=== PATIENT | female | born 1955 | race Caucasian/White ===

== ENCOUNTER 2021-03-21 17:04 | Emergency (ER) | payer OTHER ==
[~2021-03-21] VITALS: Ht 157.5 cm; Wt 126.6 kg
[~2021-03-21 17:04] MED LIST: ACET-8386 PO; ASPI81CT33 PO; GABA600T1 PO; ISOS5TAB7 PO; LORA-476 PO; MECL-56 PO; METF500T PO; METO25TA14 PO; OMEP40EC24 PO; SIMV20TA1 PO
--- NOTE | 2021-03-21 17:20 | NUR ---
PT TO [facility] VIA W/C
[2021-03-21 17:22] VITALS: BP 146/77
--- NOTE | 2021-03-21 18:08 | NUR ---
PT W/C ASSISTED TO BED 12
--- NOTE | 2021-03-21 18:10 | NUR ---
66 y/o female BIBA for c/o [facility]. AOX4, able to make needs known. BLL noted with edema +3. Left lemus noted with wound closed with scab. No s.sx of active bleeding at this time. Abd is soft/ rounded and non-tender. Weak pedal pulses noted bilat. Resp even and unlabored. Clear lung sounds noted bilat. Trachea midline. Pmhx: DM, GERD, HTN Allergies: Denies Home meds: "Something for B/P and DM"
[2021-03-21 18:42] LABS: BASOPHILS # (AUTO) 0.1 K/uL (0.00-0.22); BASOPHILS % (AUTO) 0.4 % (0.0-2.0); EOSINOPHILS # (AUTO) 0.2 K/uL (0-0.4); EOSINOPHILS % (AUTO) 1.4 % (0.0-4.0); HEMOGLOBIN 11.5 g/dL (12.0-16.0); MEAN CORPUSCULAR HEMOGLOBIN 25 pg (27-31); MEAN CORPUSCULAR HGB CONC 32 g/dL (33-37); MEAN CORPUSCULAR VOLUME 79.6 fL (80-94); MONOCYTES # (AUTO) 0.9 K/uL (0.8-1.0); MONOCYTES % (AUTO) 6.7 % (1.7-9.3); NEUTROPHILS % (AUTO) 76.5 % (42.2-75.2); PLATELET COUNT (AUTO) 375 K/uL (140-450); RED BLOOD CELL COUNT(AUTO) 4.52 MIL/uL (4.20-5.40); RED CELL DISTRIBUTION WIDTH 16.1 % (11.6-13.7); WHITE BLOOD COUNT (AUTO) 13.1 K/uL (4.8-10.8)
[2021-03-21 18:52] LABS: ALBUMIN 3.1 g/dL (3.4-5.0); CARBON DIOXIDE 29.5 mmol/L (21-32); CREATININE 1.3 mg/dL (0.6-1.3); POTASSIUM 4.5 mmol/L (3.5-5.1); TOTAL BILIRUBIN 0.4 mg/dL (0.0-1.0)
--- NOTE | 2021-03-21 19:05 | NUR ---
Note jhon in EDM - 03/21/21 at 1910 by [facility] Patient discharged with v/s stable. Written and verbal after care instructions given and explained with teachback. Patient verbalized understanding. Ambulatory with steady gait. All questions addressed prior to discharge. Advised to follow up with PMD.
--- NOTE | 2021-03-21 19:19 | NUR ---
Pt report given to SANDIE VIDES. Transfer of care at this time.
--- NOTE | 2021-03-21 20:11 | NUR ---
Dr. Anglin examining patient.
--- NOTE | 2021-03-21 20:55 | NUR ---
SPOKE WITH PTS FAMILY. UPDATE GIVEN. SON : MANISH [phone]
[2021-03-21] MEDS ORDERED: CEPH-588 PO (22:37)
--- NOTE | 2021-03-21 22:58 | NUR ---
call to family re discharge. they will be here to machine pecan picker pt
[2021-03-21 23:15] VITALS: BP 146/77
--- NOTE | 2021-03-21 23:15 | NUR ---
Patient discharged with v/s stable. Written and verbal after care instructions given and explained. Patient alert, oriented and verbalized understanding of instructions. Wheel Chair Assisted with to car. All questions addressed prior to discharge. ID band removed. Patient advised to follow up with PMD. Rx of KEFLEX given. Patient educated on indication of medication including possible reaction and side effects. Opportunity to ask questions provided and answered.
[2021-03-21] MEDS ORDERED: IBUPROFEN 800 MG TAB ONE (23:16)
[2021-03-21] MEDS ORDERED: IBUPROFEN 800 MG TAB PO ONE (23:20)
== END 2021-03-21 23:15 | disposition home or self-care (01) ==
LOC: MED 17:04
DX: L03.116 Cellulitis of left lower limb (principal); I10 Essential (primary) hypertension; E11.9 Type 2 diabetes mellitus without complications; K21.9 Gastro-esophageal reflux disease without esophagitis; E78.5 Hyperlipidemia, unspecified; Z79.2 Long term (current) use of antibiotics; Z79.891 Long term (current) use of opiate analgesic; Z79.899 Other long term (current) drug therapy; Z79.82 Long term (current) use of aspirin
CPT/HCPCS: 36415; 72170; 73560; 73590; 80053; 85025; 93971; 99285; Q0092

== ENCOUNTER 2021-03-27 22:39 | Inpatient (IN) | payer OTHER, SELFPAY ==
[~2021-03-27] VITALS: Ht 165.1 cm; Wt 98.4 kg
[~2021-03-27 22:39] MED LIST changes: +CEPH-588 PO
--- NOTE | 2021-03-27 22:44 | NUR ---
MOVED INTO ED BED 6 AT THIS TIME BY EMS
[2021-03-27 22:46] VITALS: BP 128/65
--- NOTE | 2021-03-28 00:12 | NUR ---
er md at bedside for assessment, performed hemoccult test
[2021-03-28] MEDS: SIMVASTATIN 20 MG TAB PO SCH (00:43)
[2021-03-28 01:15] LABS: BASOPHILS # (AUTO) 0.1 K/uL (0.00-0.22); BASOPHILS % (AUTO) 0.8 % (0.0-2.0); EOSINOPHILS # (AUTO) 0.2 K/uL (0-0.4); EOSINOPHILS % (AUTO) 2.1 % (0.0-4.0); HEMATOCRIT 30.6 % (36-48); HEMOGLOBIN 9.8 g/dL (12.0-16.0); LYMPHOCYTES # (AUTO) 2.2 K/uL (2.5-16.5); LYMPHOCYTES % (AUTO) 18.1 % (20.5-51.1); MEAN CORPUSCULAR HEMOGLOBIN 25 pg (27-31); MEAN CORPUSCULAR HGB CONC 32 g/dL (33-37); MONOCYTES # (AUTO) 1.1 K/uL (0.8-1.0); MONOCYTES % (AUTO) 9.5 % (1.7-9.3); NEUTROPHILS # (AUTO) 8.3 K/uL (1.8-7.7); NEUTROPHILS % (AUTO) 69.5 % (42.2-75.2); PLATELET COUNT (AUTO) 348 K/uL (140-450); RED BLOOD CELL COUNT(AUTO) 3.87 MIL/uL (4.20-5.40); RED CELL DISTRIBUTION WIDTH 16.2 % (11.6-13.7)
[2021-03-28] MEDS ORDERED: ACETAMINOPHEN EXTRA STRENGTH 500 MG TAB PO ONE (01:15)
[2021-03-28 01:39] LABS: ALBUMIN 2.5 g/dL (3.4-5.0); ANION GAP 10.2 (8-16); CARBON DIOXIDE 29.4 mmol/L (21-32); CREATININE 1.6 mg/dL (0.6-1.3); POTASSIUM 3.6 mmol/L (3.5-5.1); TOTAL BILIRUBIN 0.5 mg/dL (0.0-1.0)
[2021-03-28] MEDS ORDERED: DEXTROSE 50% 50 ML SYR IVP ONE ×2 (01:50)
[2021-03-28 01:57] LABS: BILIRUBIN,URINE 1+ (NEGATIVE); BLOOD, URINE 3+ (NEGATIVE); COLOR,URINE YELLOW (YELLOW); LEUKOCYTE ESTERASE ,URINE 2+ (NEGATIVE); NITRITE, URINE POSITIVE (NEGATIVE); UGLUCOSE NEGATIVE (NEGATIVE)
[2021-03-28 02:03] LABS: APPEARANCE,URINE SLIGHTLY CLOUDY (CLEAR)
[2021-03-28 02:04] LABS: RBC,URINE 0-5 /HPF (0-5); WBC,URINE TOO MANY TO COUNT /HPF (0-5)
--- NOTE | 2021-03-28 02:18 | NUR ---
ADMIT CALLED TO CONFIRM ADMISSION INSURANCE AND WAS TOLD IT WAS A CALL OUT
--- NOTE | 2021-03-28 02:39 | NUR ---
ER MD ADVISED OF PATIENT COMPLAINTS OF PAIN
[2021-03-28] MEDS ORDERED: MORPHINE SULFATE 2 MG/ML SYR IVP ONE (02:40)
[2021-03-28] MEDS ORDERED: cefTRIAXone 1,000 MG VIAL ONE (02:51)
[2021-03-28] MEDS: DEXTROSE 10% 1,000 ML IV SCH (03:30)
[2021-03-28] MEDS: BLOOD GLUCOSE MONITORING 1 DEV DEV FS SCH ×6 (05:51→21:21)
--- NOTE | 2021-03-28 06:58 | NUR ---
PATIENT HAS BEEN SCREENED AND CATEGORIZED LOW NUTRITION RISK. PATIENT WILL BE SEEN WITHIN 7 DAYS OF ADMISSION. 04/05/21 MARY BARBOUR MS, RDN Addendum: 03/28/21 at [address] Correct date to be seen: 04/04/21 Mary Barbour MS, RDN
--- NOTE | 2021-03-28 07:26 | NUR ---
RECEIVED REPORT FROM MAHOGANY MINA. ASSUMED CARE AT THIS TIME.
[2021-03-28] MEDS ORDERED: ZOLPIDEM 5 MG TAB PO PRN (07:35)
[2021-03-28] MEDS ORDERED: ONDANSETRON 4 MG/2 ML VIAL IVP PRN (07:35)
[2021-03-28] MEDS ORDERED: ACETAMINOPHEN 325 MG TAB PO PRN (07:35)
[2021-03-28 08:19] LABS: FREE T4 (FREE THYROXINE) 1.42 ng/dL (0.76-1.46); MAGNESIUM 2.1 mg/dL (1.8-2.4); PHOSPHORUS 4.9 mg/dL (2.5-4.9); THYROID STIMULATING HORMONE 1.35 uIU/mL (0.34-3.74)
--- NOTE | 2021-03-28 08:24 | NUR ---
S/W PATIENTS STEP DAUGHTER MANDA WITH PATIENT UPDATE.
--- NOTE | 2021-03-28 08:43 | NUR ---
PATIENT PROVIDED WITH BREAKFAST TRAY, ASSISTED UP IN BED. PATIENT EATING, ALL NEEDS MET AT THIS TIME.
[2021-03-28] MEDS ORDERED: HYDROcodone/APAP 5/325 MG 1 TAB TAB PO PRN (11:15)
--- NOTE | 2021-03-28 11:55 | NUR ---
PATIENT C/O 9/10 PAIN, MEDICATED WITH PRN MORPHINE ORDERED.
[2021-03-28] MEDS: MORPHINE SULFATE 2 MG/ML SYR IVP PRN ×2 (12:03→16:47)
--- NOTE | 2021-03-28 12:04 | NUR ---
PATIENT ASSISTED TO USE BED LAWS. PROVIDED WITH NEW SHEETS, DIAPER AND UNDERPADS, GIVEN CLEAN BLANKETS, ALL NEEDS MET AT THIS TIME.
[2021-03-28] MEDS ORDERED: DEXTROSE 50% 50 ML SYR IVP PRN (13:10)
[2021-03-28] MEDS ORDERED: MECLIZINE 25 MG TAB PO PRN (13:10)
--- NOTE | 2021-03-28 14:00 | NUR ---
PATIENT PROVIDED WITH LUNCH TRAY, ASSISTED UP IN BED. PATIENT EATING, ALL NEEDS MET AT THIS TIME.
[2021-03-28] MEDS ORDERED: BLOOD GLUCOSE MONITORING 1 DEV DEV FS SCH (16:30)
--- NOTE | 2021-03-28 16:46 | NUR ---
PATIENT C/O 8/10 PAIN, MEDICATED WITH PRN MORPHINE ORDERED.
[2021-03-28] MEDS: GABAPENTIN 300 MG CAP PO SCH (17:12)
--- NOTE | 2021-03-28 17:45 | NUR ---
PATIENT APPEARS TO BE RESTING IN BED WITH EYES CLOSED. PATIENT ON BEDSIDE STRAND AND BINDER CONTROLLER, WILL CONTINUE TO MONITOR.
--- NOTE | 2021-03-28 19:14 | NUR ---
Pt report given to MAHOGANY OLIVEIRA. Transfer of care at this time.
--- NOTE | 2021-03-28 20:04 | NUR ---
Report given to JESSICA Morin and patient will transfer to room 120A.
[2021-03-28 20:45] VITALS: BP 101/59
--- NOTE | 2021-03-28 20:55 | NUR ---
RECEIVED PT FROM / TYSON AAOX4 , TRANSFER TO BED W/ ASSIST . IV SITE INTACT AND PATENT . NID - OP2 SAT WNL - W/ O2 AT 2LPM/NC , DENIES PAIN AT THIS TIME , W/ WOUNDS : L LEG , UNDER THE BREASTS , AND ABD. SKIN FOLDS . ADMISSION ASSESSMENT - DONE , PUT PT ON FALL RISK PROTOCOL - REMINDS PT DON'T STAND UP BY HERSELF , BUT USE CALL LIGHT NEEDED . ON TELE MONITOR - SR . WILL CONT. TO MONITOR .
[2021-03-28] MEDS: ISOSORBIDE DINITRATE 10 MG TAB PO SCH (21:00)
[2021-03-28] MEDS: METOPROLOL 25 MG TAB PO SCH (21:00)
[2021-03-28] MEDS: INSULIN LISPRO SLIDING SCALE 100 UNITS/ML VIAL SUBQ PRN (21:21)
[2021-03-29] VITALS: BP 123/80
--- NOTE | 2021-03-29 | NUR ---
ROUNDS , SLEEPING , AWAKEABLE . CALL LIGHT WITHIN REACH .
[2021-03-29] MEDS: SIMVASTATIN 20 MG TAB PO SCH ×2 (00:30→23:30)
--- NOTE | 2021-03-29 02:00 | NUR ---
C/O LEG PAIN - WILL MEDICATE - V/S WNL . WILL CONT. TO MONITOR .
[2021-03-29 04:00] VITALS: BP 125/81
--- NOTE | 2021-03-29 04:00 | NUR ---
ROUNDS , NID - O2 SAT WNL . WILL CONT. TO MONITOR - CALL LIGHT WITHIN REACH .
--- NOTE | 2021-03-29 06:00 | NUR ---
ENDORSED- PT - STABLE - FOR STOOL OCCULT .CALL LIGHT WITHIN REACH
[2021-03-29] MEDS: DEXTROSE 10% 1,000 ML IV SCH (06:19)
[2021-03-29] MEDS: BLOOD GLUCOSE MONITORING 1 DEV DEV FS SCH ×4 (06:22→21:03)
[2021-03-29 06:50] LABS: BASOPHILS # (AUTO) 0.1 K/uL (0.00-0.22); BASOPHILS % (AUTO) 0.5 % (0.0-2.0); EOSINOPHILS # (AUTO) 0.4 K/uL (0-0.4); EOSINOPHILS % (AUTO) 3.5 % (0.0-4.0); HEMATOCRIT 31.4 % (36-48); LYMPHOCYTES % (AUTO) 16.8 % (20.5-51.1); MEAN CORPUSCULAR HEMOGLOBIN 26 pg (27-31); MEAN CORPUSCULAR HGB CONC 32 g/dL (33-37); MEAN CORPUSCULAR VOLUME 80.5 fL (80-94); MONOCYTES % (AUTO) 8.3 % (1.7-9.3); NEUTROPHILS # (AUTO) 8.6 K/uL (1.8-7.7); NEUTROPHILS % (AUTO) 70.9 % (42.2-75.2); PLATELET COUNT (AUTO) 325 K/uL (140-450); RED CELL DISTRIBUTION WIDTH 16.5 % (11.6-13.7); WHITE BLOOD COUNT (AUTO) 12.2 K/uL (4.8-10.8)
[2021-03-29 07:27] LABS: ANION GAP 9.5 (8-16); CARBON DIOXIDE 28.6 mmol/L (21-32); CREATININE 1.4 mg/dL (0.6-1.3); POTASSIUM 4.1 mmol/L (3.5-5.1)
--- NOTE | 2021-03-29 07:30 | NUR ---
RECEIVED PT AAOX4. NO SOB NOTED. NO C/O PAIN AT THIS TIME. IV TO LEFT HAND PATENT AND INTACT. CHEST, DIMINISHED AIR ENTRY TO THE BASES. ABDOMEN SOFT, BOWEL SOUNDS PRESENT. BLE EDEMA, NO PITTING NOTED 2+, NOTED A CLOSED WOUND ON LEFT LOWER LEG. INSTRUCTED PT TO CALL FOR ASSISTANCE, CALL LIGHT WITHIN REACH, PT VERBALIZED UNDERSTANDING.
[2021-03-29 07:59] LABS: PHOSPHORUS 4.7 mg/dL (2.5-4.9)
[2021-03-29 08:00] VITALS: BP 128/69
[2021-03-29 08:07] LABS: T4 (THYROXINE) 7.2 ug/dL (4.5-12.0)
[2021-03-29] MEDS: ISOSORBIDE DINITRATE 10 MG TAB PO SCH ×2 (09:54→21:00)
[2021-03-29] MEDS: ASPIRIN 81 MG TAB.CHEW PO SCH (09:55)
[2021-03-29] MEDS: GABAPENTIN 300 MG CAP PO SCH ×3 (09:55→18:30)
[2021-03-29] MEDS: PANTOPRAZOLE 40 MG TABEC PO SCH (09:55)
[2021-03-29 12:00] VITALS: BP 138/66
--- NOTE | 2021-03-29 12:30 | NUR ---
APPLIED INTERDRY ON BILATERAL BREAST FOLDS AND ABDOMINAL FOLDS.
[2021-03-29 16:00] VITALS: BP 126/69
[2021-03-29] MEDS: INSULIN LISPRO SLIDING SCALE 100 UNITS/ML VIAL SUBQ PRN ×2 (18:30→22:46)
[2021-03-29] MEDS: FERROUS SULFATE 325 MG TABEC PO SCH (18:31)
--- NOTE | 2021-03-29 19:35 | NUR ---
PT RESTING. NO SOB NOTED. NO SIGNS OF PAIN ENDORSED TO NEXT SHIFT NURSE FOR CONTINUITY OF CARE.
[2021-03-29 20:00] VITALS: BP 111/59
[2021-03-29] MEDS: METOPROLOL 25 MG TAB PO SCH (21:00)
[2021-03-29] MEDS ORDERED: CRUSHER, PILL MC ONE (22:02)
--- NOTE | 2021-03-29 22:20 | NUR ---
PT HARDLY AWAKEABLE - O2 SAT 100 % , BP 127/56 , OH 79 AFEBRILE , RE CHECK BS 196 - APPLY STERNAL RUB .
[2021-03-30] VITALS: BP 105/60
--- NOTE | 2021-03-30 01:55 | NUR ---
FULLY AWAKE , EATING . O2 100 % . WILL CONT. TO MONITOR .
[2021-03-30 04:00] VITALS: BP 127/62
--- NOTE | 2021-03-30 04:00 | NUR ---
SLEEPING , AWAKEABLE , ON TELE MONITOR - SR , O2 SAT WNL.
--- NOTE | 2021-03-30 06:00 | NUR ---
AWAKE , NO C/O PAIN . O2 SAT 100 %
[2021-03-30 06:53] LABS: BASOPHILS % (AUTO) 0.4 % (0.0-2.0); EOSINOPHILS # (AUTO) 0.4 K/uL (0-0.4); EOSINOPHILS % (AUTO) 4.2 % (0.0-4.0); HEMATOCRIT 29.3 % (36-48); HEMOGLOBIN 9.6 g/dL (12.0-16.0); LYMPHOCYTES # (AUTO) 2.1 K/uL (2.5-16.5); LYMPHOCYTES % (AUTO) 19.9 % (20.5-51.1); MEAN CORPUSCULAR HEMOGLOBIN 26 pg (27-31); MEAN CORPUSCULAR HGB CONC 33 g/dL (33-37); MEAN CORPUSCULAR VOLUME 80.6 fL (80-94); MONOCYTES # (AUTO) 0.9 K/uL (0.8-1.0); MONOCYTES % (AUTO) 8.2 % (1.7-9.3); NEUTROPHILS # (AUTO) 7.2 K/uL (1.8-7.7); NEUTROPHILS % (AUTO) 67.3 % (42.2-75.2); PLATELET COUNT (AUTO) 349 K/uL (140-450); RED BLOOD CELL COUNT(AUTO) 3.63 MIL/uL (4.20-5.40); RED CELL DISTRIBUTION WIDTH 16.4 % (11.6-13.7); WHITE BLOOD COUNT (AUTO) 10.6 K/uL (4.8-10.8)
[2021-03-30] MEDS: INSULIN LISPRO SLIDING SCALE 100 UNITS/ML VIAL SUBQ PRN ×3 (06:56→16:54)
[2021-03-30] MEDS: BLOOD GLUCOSE MONITORING 1 DEV DEV FS SCH ×4 (06:56→20:00)
[2021-03-30 07:11] LABS: PHOSPHORUS 4.3 mg/dL (2.5-4.9)
--- NOTE | 2021-03-30 07:30 | NUR ---
ENDORSED- PT - STABLE .
[2021-03-30 07:43] LABS: ANION GAP 8.3 (8-16); CARBON DIOXIDE 30.1 mmol/L (21-32); CREATININE 1.5 mg/dL (0.6-1.3); POTASSIUM 4.4 mmol/L (3.5-5.1)
[2021-03-30 08:00] VITALS: BP 134/65
[2021-03-30] MEDS: GABAPENTIN 300 MG CAP PO SCH ×3 (08:31→16:43)
[2021-03-30] MEDS: FERROUS SULFATE 325 MG TABEC PO SCH ×2 (08:31→16:43)
[2021-03-30] MEDS: ISOSORBIDE DINITRATE 10 MG TAB PO SCH ×2 (08:31→21:49)
[2021-03-30] MEDS: ASPIRIN 81 MG TAB.CHEW PO SCH (08:31)
[2021-03-30] MEDS: PANTOPRAZOLE 40 MG TABEC PO SCH (08:32)
--- NOTE | 2021-03-30 09:35 | NUR ---
WOUND CARE EVALUATION NOTE: SKIN ASSESSMENT DONE WITH THIS 66 Y/O PT ADMITTED TO [facility] WITH INITIAL DX OF GENERALIZED WEAKNESS. PAST MEDICAL HX INCLUDES DIABETES TYPE 2, HYPERTENSION, HYPERLIPIDEMIA. ALL ABOVE INFORMATION OBTAINED FROM ADMISSION H&P. PT IS AWAKE. SKIN IS WARM AND DRY, BLE NO HAIR GROWTH, +1 EDEMA TO BILATERAL LOWER LEGS. BILATERAL DORSAL PEDAL PULSES PRESENT AND THICKEN FUNGAL NAILS OBSERVED. PT. INCONTINENT OF BLADDER AT TIME OF ASSESSMENT. PLAN OF CARE DISCUSSED WITH PRIMARY RN. INTEGUMENTARY: -INTERTRIGO BILATERAL BREAST FOLDS AND LOWER ABDOMINAL FOLDS, SKIN RED, MOIST INTACT. -MOISTURE ASSOCIATED DERMATITIS TO GROINS AND BILATERAL LOWER BUTTOCKS, LEFT BUTTOCKS WITH MULTIPLE EROSIONS SUPERFICIAL DEPTH. -LLE 3X3CM DRY BROWN SCAB, KIRBY-WOUND FLAKY SKIN RECOMMENDATIONS: -CLEANSE BILATERAL BREAST FOLDS AND LOWER ABDOMINAL FOLDS WITH MILD SOAP AND WATER, PAT DRY APPLY INTER DRY CLOTH QD AND CHANGE INTER DRY CLOTH WEEKLY AND PRN IF SOILING -APPLY CALMOSEPTINE CREAM TO GROINS AND BUTTOCKS BID AND PRN IF SOILING -PAINT LLE SCAB WITH BETADINE SWAP BID AND INTERNET ECOMMERCE SPECIALIST -TURN AND REPOSITION PATIENT Q 2H -INSPECT SKIN UNDER AND AROUND MEDICAL DEVICES. -ASSESS AND MONITOR SKIN CONDITION DURING POSITION CHANGE -OFFLOAD BILATERAL HEELS BY PLACING PILLOWS UNDER CALVES AT ALL TIMES, UNLESS OTHERWISE CONTRAINDICATED -APPLY HEEL PROTECTORS -PRESSURE REDISTRIBUTION SURFACE AND OFFLOADING SACRALCOCCYX -MANAGE FRICTION AND SHEAR BY USING LIFT SHEET TO REPOSITION PATIENT -HOB 30 DEGREE TOLERATE -PLEASE FOLLOW RD RECOMMENDATIONS PLEASE NOTIFIED WOUND CARE NURSE FOR ANY CHANGE OF SKIN CONDITION
--- NOTE | 2021-03-30 10:46 | NUR ---
PT STABLE. NO S/S OF DISTRESS. BREATHING SYMMETRICAL. CALL LIGHT IN REACH. ALL SAFETY MEASURES IN PLACE
[2021-03-30 12:12] VITALS: BP 129/65
--- NOTE | 2021-03-30 14:32 | NUR ---
DC PLANNIN YRS OLD FEMALE PATIENT WAS ADMITTED FROM HOME WITH A DX OF HYPOGLYCEMIA AND UTI. PATIENT HAS A HX OF DM HTN, HLD . CXR SHOWED LEFT BASILAR ATELECTASIS OR INFILTRATE RAPID COVID TEST NEGATIVE, HIP XRAY NO FRACTURE. STARTED IVF, IV ABX ROCEPHIN. CONSULTED WITH ID DR HENDRICKSON. ORDERED PT EVAL. DC PLAN SNF VS HOME HEALTH. CM TO FOLLOW Addendum: 04/01/21 at 1441 by Pat Macdonald RN DC PLANNING PATIENT HAS ESBL OF THE URINE NEEDS IV ABX AND PT RECOMMENDED SNF FOR REHAB. FAXED TO [facility] AND [facility]. CM TO FOLLOW Addendum: 04/01/21 at 1603 by Pat Macdonald RN DC PLANNING: RECEIVED A CALL FROM [facility] SPOKE WITH CINDY CHRISTOPHER THE [facility] IS DELEGATED FOR DC NEEDS CALLED [facility] [phone] SPOKE WITH THE COORDINATOR STATED HUMERA IS THE CM CALLED BENNYLUZ AT [phone] STATED AMADOU IS THE DC BETTING AGENCY MANAGER TO CALL [phone] AND TO FAX TO [phone]. SPOKE WITH AMADOU NOTIFIED HER THAT [facility] HAS NO ISO BED TODAY BUT WILL ACCEPT PATIENT TOMORROW. FAXED ALL THE REQUEST. CM TO FOLLOW Addendum: 04/01/21 at 1634 by Pat Macdonald RN DC PLANNING: CALLED PATIENT IBRAHIM SPOKE WITH MANISH DISCUSSED THE DC PLAN TO SNF FOR PT AND ABX, HE AGREED AND ANY CONTRACTED FACILITY WITH INSURANCE WILL BE OK. CM TO FOLLOW Addendum: 04/02/21 at 1650 by Pat Macdonald RN DC PLANNING: PER KENNEDY AT [facility] NO ISO BED TODAY, WILL HAVE SOME ARRANGEMENTS TOMORROW. [facility] NO ISO BED. CM TO FOLLOW Addendum: 04/03/21 at 1534 by Pat Macdonald RN DC PLANNING: RECEIVED A CALL FROM [facility] CAN NOT TAKE PATIENT.FAXED TO [facility] ACCEPT PT AWAITING FOR AUTHORIZATION. CM TO FOLLOW Addendum: 04/03/21 at 1658 by Pat Macdonald RN DC PLANNING: PATIENT IS ACCEPTED AT [facility] GOING TO ROOM 31C ARRANGED TRANSPORT WITH [facility] TIME IS 8:30 PM CALLED PATIENT'S SON MANISH LEFT A MESSAGE ,SPOKE WITH DAUGHTER MANDA NOTIFIED HER STATED WILL NOTIFY HER BROTHER. JOSE VIDES AWARE. CM TO FOLLOW
--- NOTE | 2021-03-30 15:18 | NUR ---
PT STILL RESTING IN BED WITH EYES CLOSED. NO S/S OF DISTRESS. PT TOLERATING RA. CALL LIGHT IN REACH. ALL SAFETY MEASURES IN PLACE
--- NOTE | 2021-03-30 18:18 | NUR ---
PT TOLERATING RA AT 95%. NO S/S OF DISTRESS. BREATHING SYMMETRICAL. CALL LIGHT IN REACH. ALL SAFETY MEASURES IN PLACE
[2021-03-30 20:00] VITALS: BP 129/65
--- NOTE | 2021-03-30 20:00 | NUR ---
Pt awake with stable V/S, call light within reach.
[2021-03-30] MEDS: METOPROLOL 25 MG TAB PO SCH (21:50)
[2021-03-30] MEDS: SIMVASTATIN 20 MG TAB PO SCH (21:50)
[2021-03-31 05:03] VITALS: BP 127/67
--- NOTE | 2021-03-31 06:33 | NUR ---
ENDORSED PT, STABLE, FOR STOOL OCCULT
[2021-03-31] MEDS: BLOOD GLUCOSE MONITORING 1 DEV DEV FS SCH ×4 (07:30→21:00)
[2021-03-31 08:00] VITALS: BP 142/78
[2021-03-31] MEDS: FERROUS SULFATE 325 MG TABEC PO SCH ×2 (08:00→16:21)
--- NOTE | 2021-03-31 08:00 | NUR ---
RECEIVED REPORT FROM [facility]. PT A/O X4. NO SOB OR RESPIRATORY DISTRESS. ON RA. RR EVEN & UNLABORED. DENIES PAIN AT THIS TIME. NEEDS ALL MET AT THIS TIME. ENCOURAGE USE OF CALL LIGHT. SAFETY MEAUSRES IN PLACE. WILL MONITOR CLOSELY.
[2021-03-31] MEDS: INSULIN LISPRO SLIDING SCALE 100 UNITS/ML VIAL SUBQ PRN ×3 (08:50→16:57)
[2021-03-31 09:06] LABS: FOLIC ACID 10.2 ng/mL (>3.0)
[2021-03-31] MEDS: ASPIRIN 81 MG TAB.CHEW PO SCH (09:06)
[2021-03-31] MEDS: ISOSORBIDE DINITRATE 10 MG TAB PO SCH ×2 (09:06→21:00)
[2021-03-31] MEDS: GABAPENTIN 300 MG CAP PO SCH ×3 (09:07→16:21)
[2021-03-31] MEDS: PANTOPRAZOLE 40 MG TABEC PO SCH (09:07)
[2021-03-31] MEDS ORDERED: CEPH-588 PO (10:33)
[2021-03-31] MEDS: MEROPENEM 1,000 MG in NACL 0.9% 50 ML IV SCH ×2 (13:26→21:00)
--- NOTE | 2021-03-31 13:32 | NUR ---
OBSERVED L HAND WITH NO IV. PT SIGNALS THAT SHE PULLED IT OUT. NO ACTIVE BLEEDING. NEW IV RESTART. ATTEMPT X1. POSITIVE BLOOD RETURN, FLUSH WITH NS. PT TOLERATED WELL. ATB INFUSING. NO ADVERSE REACTIONS. NO SOB OR RESPIRATORY DISTRESS. ON RA. NEEDS ALL MET. WILL CONTINUE TO MONITOR CLOSELY.
[2021-03-31 16:00] VITALS: BP 138/65
--- NOTE | 2021-03-31 18:48 | NUR ---
PT ASLEEP. CHEST RISING AND FALLING. NO SOB OR RESPIRATORY DISTRESS. VSS. NEEDS ALL MET AT THIS TIME. SAFE PRECAUTIONS IN PLACE. WILL ENDORSE CARE TO NIGHTSHIFT.
--- NOTE | 2021-03-31 20:00 | NUR ---
PT IS ALERT AND COHERENT, V/S STABLE, DENIES ANY PAIN OF THIS TIME, WILL CONTINUE TO MONITOR
[2021-03-31] MEDS: SIMVASTATIN 20 MG TAB PO SCH (21:00)
[2021-03-31] MEDS: METOPROLOL 25 MG TAB PO SCH (21:00)
[2021-04-01 05:06] VITALS: BP 125/62
--- NOTE | 2021-04-01 07:30 | NUR ---
RECEIVED ENDORSEMENT FROM [facility] FOR CONTINUITY OF CARE.
[2021-04-01] MEDS: BLOOD GLUCOSE MONITORING 1 DEV DEV FS SCH ×4 (08:17→21:04)
[2021-04-01] MEDS: INSULIN LISPRO SLIDING SCALE 100 UNITS/ML VIAL SUBQ PRN ×4 (08:21→21:05)
[2021-04-01] MEDS: PANTOPRAZOLE 40 MG TABEC PO SCH (08:54)
[2021-04-01] MEDS: GABAPENTIN 300 MG CAP PO SCH ×3 (08:54→17:30)
[2021-04-01] MEDS: FERROUS SULFATE 325 MG TABEC PO SCH ×2 (08:54→17:30)
[2021-04-01] MEDS: ASPIRIN 81 MG TAB.CHEW PO SCH (08:54)
[2021-04-01] MEDS: ISOSORBIDE DINITRATE 10 MG TAB PO SCH ×2 (08:55→21:06)
[2021-04-01] MEDS: MEROPENEM 1,000 MG in NACL 0.9% 50 ML IV SCH ×2 (08:56→21:06)
--- NOTE | 2021-04-01 09:30 | NUR ---
PT ON BED RESTING WITH CALL LIGHT WITH IN EASY REACH. NO HYPOGLYCEMIA NOTED. GIVEN ALL DUE MEDICATION . RN GAVE IPPB ANTIBIOTIC NO ADVERSE REACTION NOTED.
[2021-04-01 10:33] LABS: BASOPHILS # (AUTO) 0.1 K/uL (0.00-0.22); BASOPHILS % (AUTO) 0.5 % (0.0-2.0); EOSINOPHILS # (AUTO) 0.3 K/uL (0-0.4); EOSINOPHILS % (AUTO) 3.2 % (0.0-4.0); HEMATOCRIT 33.2 % (36-48); HEMOGLOBIN 10.6 g/dL (12.0-16.0); LYMPHOCYTES # (AUTO) 1.8 K/uL (2.5-16.5); LYMPHOCYTES % (AUTO) 17.8 % (20.5-51.1); MEAN CORPUSCULAR HEMOGLOBIN 26 pg (27-31); MEAN CORPUSCULAR HGB CONC 32 g/dL (33-37); MEAN CORPUSCULAR VOLUME 79.9 fL (80-94); MONOCYTES # (AUTO) 0.6 K/uL (0.8-1.0); MONOCYTES % (AUTO) 6.1 % (1.7-9.3); NEUTROPHILS # (AUTO) 7.2 K/uL (1.8-7.7); NEUTROPHILS % (AUTO) 72.4 % (42.2-75.2); PLATELET COUNT (AUTO) 389 K/uL (140-450); RED BLOOD CELL COUNT(AUTO) 4.16 MIL/uL (4.20-5.40); WHITE BLOOD COUNT (AUTO) 9.9 K/uL (4.8-10.8)
--- NOTE | 2021-04-01 11:31 | NUR ---
BLOOD SUGAR CHECKED WITH 230 RESULT GIVE INSULIN COVERAGE AT ORDERED.
--- NOTE | 2021-04-01 12:02 | NUR ---
CHEST X RAY DONE.
[2021-04-01 12:48] LABS: ANION GAP 12.6 (8-16); CARBON DIOXIDE 29.5 mmol/L (21-32); CREATININE 1.2 mg/dL (0.6-1.3); POTASSIUM 4.1 mmol/L (3.5-5.1)
[2021-04-01 13:10] LABS: PHOSPHORUS 3.1 mg/dL (2.5-4.9)
[2021-04-01] MEDS: MENTHOL/ZINC OXIDE 113 GM TUBE TP SCH (13:30)
--- NOTE | 2021-04-01 14:00 | NUR ---
PT ON BED RESTING NO DISTRESS NOTED. ALL SAFETY MEASURE IN PLACE. TREATMENT DONE NOTED WITH SKIN IMPROVEMENT.
[2021-04-01 15:19] VITALS: BP 152/90
--- NOTE | 2021-04-01 16:00 | NUR ---
ONBED WITH CALL LIGHT WITH IN EASY REACH.
--- NOTE | 2021-04-01 18:00 | NUR ---
BLOOD SUGAR CHECKED GIVEN COVERAGE INSULIN . CALL LIGHT WITH IN EASY REACH.
--- NOTE | 2021-04-01 19:30 | NUR ---
GAVE REPORT TO NIGHTSHIFT NURSE FOR CONTINUITY OF CARE.
--- NOTE | 2021-04-01 19:35 | NUR ---
RECEIVED BEDSIDE REPORT FROM DAY SHIFT RN FOR CONTINUITY OF CARE. PT IS SLEEPING COMFORTABLY IN BED. PT IS ON 2L NC. PT IS NOT IN ANY DISTRESS. BREATHING RHYTHMIC AND UNLABORED. IVF RUNNING MD ORDER. CALL LIGHT WITHIN REACH. ALL SAFETY MEASURE TAKEN. WILL CONTINUE TO MONITOR THE PT.
[2021-04-01 20:00] VITALS: BP 127/62
[2021-04-01] MEDS: SIMVASTATIN 20 MG TAB PO SCH (21:07)
[2021-04-01] MEDS: METOPROLOL 25 MG TAB PO SCH (21:07)
--- NOTE | 2021-04-01 21:10 | NUR ---
ALL DUE MEDS GIVEN. NO ADVERSE REACTION NOTED. WILL CONTINUE TO MONITOR THE PT.
[2021-04-02] MEDS: MENTHOL/ZINC OXIDE 113 GM TUBE TP SCH ×2 (01:00→12:02)
--- NOTE | 2021-04-02 03:36 | NUR ---
PT IS SLEEPING COMFORTABLY IN BED COMFORTABLY. PT IS NOT IN ANY DISTRESS. BREATHING RHYTHMIC AND UNLABORED. CALL LIGHT WITHIN REACH. ALL SAFETY MEASURES TAKEN. WILL CONTINUE TO MONITOR THE PT.
[2021-04-02 04:00] VITALS: BP 151/69
--- NOTE | 2021-04-02 05:00 | NUR ---
PT WAS CLEANED AND CHANGED. NO COMPLAINS FROM THE PT. WILL CONTINUE TO MONITOR THE PT.
[2021-04-02 06:40] LABS: ANION GAP 10.4 (8-16); CARBON DIOXIDE 32.1 mmol/L (21-32); CREATININE 1.2 mg/dL (0.6-1.3); POTASSIUM 4.5 mmol/L (3.5-5.1)
[2021-04-02] MEDS: BLOOD GLUCOSE MONITORING 1 DEV DEV FS SCH ×4 (06:44→21:00)
[2021-04-02] MEDS: INSULIN LISPRO SLIDING SCALE 100 UNITS/ML VIAL SUBQ PRN ×4 (06:45→22:35)
[2021-04-02 06:47] LABS: BASOPHILS # (AUTO) 0.1 K/uL (0.00-0.22); BASOPHILS % (AUTO) 0.9 % (0.0-2.0); EOSINOPHILS # (AUTO) 0.5 K/uL (0-0.4); EOSINOPHILS % (AUTO) 4.6 % (0.0-4.0); HEMATOCRIT 32.1 % (36-48); HEMOGLOBIN 10.3 g/dL (12.0-16.0); LYMPHOCYTES # (AUTO) 2.5 K/uL (2.5-16.5); LYMPHOCYTES % (AUTO) 23.7 % (20.5-51.1); MEAN CORPUSCULAR HEMOGLOBIN 25 pg (27-31); MEAN CORPUSCULAR HGB CONC 32 g/dL (33-37); MEAN CORPUSCULAR VOLUME 79.4 fL (80-94); MONOCYTES # (AUTO) 0.7 K/uL (0.8-1.0); MONOCYTES % (AUTO) 7.2 % (1.7-9.3); NEUTROPHILS # (AUTO) 6.6 K/uL (1.8-7.7); NEUTROPHILS % (AUTO) 63.6 % (42.2-75.2); PLATELET COUNT (AUTO) 391 K/uL (140-450); RED BLOOD CELL COUNT(AUTO) 4.04 MIL/uL (4.20-5.40); WHITE BLOOD COUNT (AUTO) 10.4 K/uL (4.8-10.8)
--- NOTE | 2021-04-02 07:30 | NUR ---
ENDORSED PT TO DAY SHIFT RN FOR CONTINUITY OF CARE. PT IS STABLE.
--- NOTE | 2021-04-02 07:31 | NUR ---
RECEIVED REPORT FROM SHAFT HEADMAN NURSE. PT IN BED SLEEPING AT THIS TIME. RESPIRATIONS ARE EVEN AND UNLABORED. NO SIGNS OF DISTRESS NOTED. NO SIGNS OF PAIN OR DISCOMFORT NOTED. CALL LIGHT WITHIN REACH. ALL SAFETY MEASURES IN PLACE. WILL CONTINUE TO MONITOR.
[2021-04-02 08:00] VITALS: BP 122/68
[2021-04-02] MEDS: FERROUS SULFATE 325 MG TABEC PO SCH ×2 (08:36→16:43)
[2021-04-02] MEDS: GABAPENTIN 300 MG CAP PO SCH ×3 (08:48→16:44)
[2021-04-02] MEDS: ISOSORBIDE DINITRATE 10 MG TAB PO SCH ×2 (08:49→21:47)
[2021-04-02] MEDS: PANTOPRAZOLE 40 MG TABEC PO SCH (08:49)
[2021-04-02] MEDS: ASPIRIN 81 MG TAB.CHEW PO SCH (08:50)
--- NOTE | 2021-04-02 08:50 | NUR ---
ADMINISTERED ALL SCHEDULED MEDICATIONS. EDUCATED PT REGARDING MEDS ADMINISTERED. ANSWERED ALL QUESTIONS. WILL CONTINUE TO MONITOR.
[2021-04-02] MEDS: MEROPENEM 1,000 MG in NACL 0.9% 50 ML IV SCH ×2 (09:38→21:47)
--- NOTE | 2021-04-02 09:40 | NUR ---
IV ANTIBIOTICS ADMINISTERED BY RN. WILL CONTINUE TO MONITOR.
--- NOTE | 2021-04-02 11:30 | NUR ---
PT BLOOD GLUCOSE WAS 197. COVERED WITH 2 UNITS INSULIN PER SLIDING SCALE. WILL CONTINUE TO MONITOR.
--- NOTE | 2021-04-02 11:38 | NUR ---
found pt on room air with good saturations. pt shows no s/s of distress or sob.
[2021-04-02] MEDS ORDERED: MERO1VIA15 IV (12:04)
--- NOTE | 2021-04-02 14:23 | NUR ---
ASSISTED WITH CHANGING AND REPOSITIONING PT. PT TOLERATED WELL. NO COMPLAINTS OF PAIN OR DISCOMFORT. WILL CONTINUE TO MONITOR.
[2021-04-02 16:00] VITALS: BP 140/82
--- NOTE | 2021-04-02 16:36 | NUR ---
PT BLOOD GLUCOSE WAS 241. COVERED WITH 4 UNITS PER SLIDING SCALE. WILL CONTINUE TO MONITOR.
--- NOTE | 2021-04-02 19:22 | NUR ---
ENDORSED PT TO SENIOR LABEL SPECIALIST NURSE FOR CONTINUITY OF CARE. PT IS STABLE.
[2021-04-02] MEDS: METOPROLOL 25 MG TAB PO SCH (21:48)
[2021-04-02] MEDS: SIMVASTATIN 20 MG TAB PO SCH (21:48)
[2021-04-03] MEDS: MENTHOL/ZINC OXIDE 113 GM TUBE TP SCH ×3 (01:00→12:44)
--- NOTE | 2021-04-03 05:44 | NUR ---
PHYSICAL THERAPY CO-SIGN The Physical Therapy Progress Notes documented by Documentation Clerk have been reviewed. Reviewed/Co-Signed by: Neha Ho Documentation Done by: MARQUEZ KEYS PTA Addendum: 04/03/21 at 0545 by Neha Ho PT Amended: Links added.
[2021-04-03] MEDS: BLOOD GLUCOSE MONITORING 1 DEV DEV FS SCH ×3 (06:34→16:44)
[2021-04-03] MEDS: INSULIN LISPRO SLIDING SCALE 100 UNITS/ML VIAL SUBQ PRN ×3 (06:45→16:53)
--- NOTE | 2021-04-03 07:30 | NUR ---
RECEIVED REPORT FROM FREIGHT DISPATCHER NURSE FOR CONTINUITY OF CARE. PT IN BED SLEEPING AT THIS TIME. RESPIRATIONS ARE EVEN AND UNLABORED, PT ON 3L 02 VIA NC. NO SIGNS OF DISTRESS NOTED. NO SIGNS OF PAIN OR DISCOMFORT NOTED. CALL LIGHT WITHIN REACH. ALL SAFETY MEASURES IN PLACE. WILL CONTINUE TO MONITOR.
[2021-04-03 08:00] VITALS: BP 163/83
[2021-04-03] MEDS: FERROUS SULFATE 325 MG TABEC PO SCH ×2 (08:23→16:53)
[2021-04-03] MEDS: GABAPENTIN 300 MG CAP PO SCH ×3 (08:45→16:53)
[2021-04-03] MEDS: ASPIRIN 81 MG TAB.CHEW PO SCH (08:46)
--- NOTE | 2021-04-03 08:46 | NUR ---
ADMINISTERED ALL SCHEDULED MEDICATIONS. EDUCATED PT REGARDING MEDS ADMINISTERED. PT TOLERATED WELL. WILL CONTINUE TO MONITOR.
[2021-04-03] MEDS: PANTOPRAZOLE 40 MG TABEC PO SCH (08:48)
[2021-04-03] MEDS: ISOSORBIDE DINITRATE 10 MG TAB PO SCH (08:52)
[2021-04-03] MEDS: MEROPENEM 1,000 MG in NACL 0.9% 50 ML IV SCH (09:22)
--- NOTE | 2021-04-03 09:23 | NUR ---
IV ANTIBIOTICS ADMINISTERED BY RN. WILL CONTINUE TO MONITOR.
--- NOTE | 2021-04-03 12:44 | NUR ---
PT BLOOD GLUCOSE 193. COVERED WITH 2 UNITS INSULIN PER SLIDING SCALE. WILL CONTINUE TO MONITOR.
[2021-04-03 16:00] VITALS: BP 131/73
--- NOTE | 2021-04-03 16:53 | NUR ---
PT BLOOD GLUCOSE WAS 212. COVERED WITH 4 UNITS PER SLIDING SCALE. WILL CONTINUE TO MONITOR.
[2021-04-03 18:35] VITALS: BP 131/73
--- NOTE | 2021-04-03 18:41 | NUR ---
CALLED [facility] TO GIVE REPORT, SPOKE WITH JOSE LUIS AT [phone]. [address] JUSTICE, PT MAY BE PICKED UP EARLY 2029 BY [facility]. INFORMED JOSE LUIS. JOSE LUIS REQUEST TO LEAVE IV IN PT IS GOING TO CONTINUE WITH IV ANTIBIOTICS. WILL GO OVER DISCHARGE PAPER WORK WITH PT. WILL ENDORSE TO EDITOR PUBLICATIONS NURSE.
--- NOTE | 2021-04-03 19:30 | NUR ---
WENT OVER DISCHARGE PAPERWORK WITH PT. PT SIGNED ALL PAPERWORK. ANSWERED ALL QUESTIONS. ENDORSED DISCHARGE TO GROUP WORK PROGRAM DIRECTOR NURSE. ENDORSED PT TO GROUP WORK PROGRAM DIRECTOR NURSE. PT IS STABLE.
--- NOTE | 2021-04-03 22:12 | NUR ---
AMBULANCE PICKED UP PATIENT TO GO TO [facility]. AM NURSE GIVEN REPORT TO JOHNNIE. PATIENT IS AXO X4, DENIES PAIN/SOB/RESPIRATORY DISTRESS. ON ROOM AIR, OXYGEN SATURATION 96%. ALL BELONGINGS WITH PATIENT.
--- NOTE | 2021-04-06 15:22 | NUR ---
PHYSICAL THERAPY CO-SIGN The Physical Therapy Progress Notes documented by Furniture Repairer have been reviewed. Reviewed/Co-Signed by: Neha Ho Documentation Done by: MARQUEZ KEYS PTA Addendum: 04/06/21 at 1522 by Neha Ho PT Amended: Links added.
== END 2021-04-03 22:15 | DRG 871 ==
LOC: MED 22:39 → MTU 03-28 03:28
PROVIDERS: ADMIT General Practice; ATTEND General Practice
DX: A41.9 Sepsis, unspecified organism (principal); N17.0 Acute kidney failure with tubular necrosis; E43 Unspecified severe protein-calorie malnutrition; N39.0 Urinary tract infection, site not specified; Z16.12 Extended spectrum beta lactamase (ESBL) resistance; L03.116 Cellulitis of left lower limb; B96.20 Unspecified Escherichia coli [E. coli] as the cause of diseases classified elsewhere; E11.649 Type 2 diabetes mellitus with hypoglycemia without coma; E66.9 Obesity, unspecified; E78.5 Hyperlipidemia, unspecified; D50.9 Iron deficiency anemia, unspecified; I11.9 Hypertensive heart disease without heart failure; K21.9 Gastro-esophageal reflux disease without esophagitis; Z20.822 Contact with and (suspected) exposure to COVID-19; Z79.899 Other long term (current) drug therapy; Z79.82 Long term (current) use of aspirin; Z79.84 Long term (current) use of oral hypoglycemic drugs; Z68.36 Body mass index [BMI] 36.0-36.9, adult
CPT/HCPCS: 36415; 71045; 80048; 80053; 81001; 82607; 82728; 82746; 82948; 83036; 83540; 83735; 84100; 84436; 84439; 84443; 84479; 84484; 85025; 85045; 86886; 86900; 86901; 87081; 87086; 93005; 96365; 96375; 97110; 97112; 97116; 97163-GP; 97530; 99291; J0696; J1815; J2185; J2270; J7060; Q0092

== ENCOUNTER 2022-05-11 18:18 | Emergency (ER) | payer OTHER ==
[~2022-05-11] VITALS: Ht 154.9 cm; Wt 111.1 kg
[~2022-05-11 18:18] MED LIST changes: -ACET-8386 PO; +ACET-8905 PO; -CEPH-588 PO; +MERO1VIA15 IV; +METF-346 PO; -METF500T PO; +SIMV-372 PO; -SIMV20TA1 PO
--- NOTE | 2022-05-11 18:38 | NUR ---
[facility] ALS TO ER BED 11
[2022-05-11 18:39] VITALS: BP 160/100
[2022-05-11] MEDS ORDERED: ACETAMINOPHEN EXTRA STRENGTH 500 MG TAB PO ONE (19:05)
[2022-05-11] MEDS ORDERED: DICYCLOMINE HCL LIQUID 20 MG, ALUMINUM HYD/MAG/SIMETHICONE 30 ML, LIDOCAINE VISCOUS 2% ... PO ONE ×3 (19:05)
[2022-05-11 19:06] LABS: BASOPHILS # (AUTO) 0.1 K/uL (0.00-0.22); BASOPHILS % (AUTO) 0.5 % (0.0-2.0); EOSINOPHILS # (AUTO) 0.1 K/uL (0-0.4); EOSINOPHILS % (AUTO) 0.6 % (0.0-4.0); HEMATOCRIT 37.8 % (36-48); HEMOGLOBIN 12.4 g/dL (12.0-16.0); LYMPHOCYTES # (AUTO) 1.5 K/uL (2.5-16.5); LYMPHOCYTES % (AUTO) 14.4 % (20.5-51.1); MEAN CORPUSCULAR HEMOGLOBIN 26 pg (27-31); MEAN CORPUSCULAR HGB CONC 33 g/dL (33-37); MEAN CORPUSCULAR VOLUME 79.6 fL (80-94); MONOCYTES # (AUTO) 0.6 K/uL (0.8-1.0); MONOCYTES % (AUTO) 5.5 % (1.7-9.3); NEUTROPHILS # (AUTO) 8.1 K/uL (1.8-7.7); PLATELET COUNT (AUTO) 341 K/uL (140-450); RED BLOOD CELL COUNT(AUTO) 4.75 MIL/uL (4.20-5.40); RED CELL DISTRIBUTION WIDTH 15.2 % (11.6-13.7); WHITE BLOOD COUNT (AUTO) 10.3 K/uL (4.8-10.8)
[2022-05-11] MEDS ORDERED: DICYCLOMINE HCL LIQUID 10 MG/5 ML UDC ONE (19:13)
[2022-05-11] MEDS ORDERED: ALUMINUM HYD/MAG/SIMETHICONE 30 ML UDC ONE (19:13)
[2022-05-11 19:20] LABS: ALBUMIN 3.2 g/dL (3.4-5.0); ANION GAP 12.8 (8-16); CARBON DIOXIDE 27.4 mmol/L (21-32); CREATININE 1.6 mg/dL (0.6-1.3); POTASSIUM 4.2 mmol/L (3.5-5.1); TOTAL BILIRUBIN 0.4 mg/dL (0.0-1.0)
--- NOTE | 2022-05-11 19:30 | NUR ---
c/o lower abd pain x 4 days and rectal pain. pmhx DM HTN HLD, denies allergies.
--- NOTE | 2022-05-11 19:38 | NUR ---
paz daughter in law called for update, [phone], pt states her son philomena is in charge of paper work and updates to please consult with him. Addendum: 05/11/22 at 2042 by RENEE joy quach
[2022-05-11] MEDS ORDERED: NACL 0.9% 2,000 ML IV ONE (19:40)
--- NOTE | 2022-05-11 20:00 | NUR ---
Pt had large bowel movement. Linens and diaper changed.
--- NOTE | 2022-05-11 20:01 | NUR ---
Urine collected and sent to lab
--- NOTE | 2022-05-11 20:02 | NUR ---
PT TAKEN TO RADIOLOGY
[2022-05-11 20:07] LABS: APPEARANCE,URINE CLEAR (CLEAR); BILIRUBIN,URINE NEGATIVE (NEGATIVE); BLOOD, URINE NEGATIVE (NEGATIVE); COLOR,URINE YELLOW (YELLOW); LEUKOCYTE ESTERASE ,URINE NEGATIVE (NEGATIVE); NITRITE, URINE NEGATIVE (NEGATIVE); UGLUCOSE 3+ (NEGATIVE)
--- NOTE | 2022-05-11 21:12 | NUR ---
Pt noted with elevated blood pressure, ERMD made aware no new orders at this time.
[2022-05-11] MEDS ORDERED: BEN10 PO (21:43)
[2022-05-11] MEDS ORDERED: METO-486 PO (21:43)
[2022-05-11] MEDS ORDERED: FAMO-92 PO (21:43)
--- NOTE | 2022-05-11 22:45 | NUR ---
Patient discharged with v/s stable. Written and verbal after care instructions given and explained. Patient verbalized understanding. Wheel Chair Assisted with to car. Accompanied by son. All questions addressed prior to discharge. Advised to follow up with PMD.
[2022-05-11 22:46] VITALS: BP 195/93
== END 2022-05-11 22:45 | disposition home or self-care (01) ==
LOC: MED 18:18
DX: R10.30 Lower abdominal pain, unspecified (principal); E86.0 Dehydration; E87.20 Acidosis, unspecified; E11.9 Type 2 diabetes mellitus without complications; K21.9 Gastro-esophageal reflux disease without esophagitis; I10 Essential (primary) hypertension; E78.5 Hyperlipidemia, unspecified; Z79.899 Other long term (current) drug therapy; Z79.82 Long term (current) use of aspirin; Z79.891 Long term (current) use of opiate analgesic
CPT/HCPCS: 36415; 71045; 74176; 80053; 81001; 81003; 83605; 83690; 85025; 87040; 96360; 99285; Q0092

== ENCOUNTER 2023-09-01 18:03 | Observation (INO) | payer OTHER ==
[~2023-09-01] VITALS: Ht 165.1 cm; Wt 113.4 kg
[~2023-09-01 18:03] MED LIST changes: +BEN10 PO; +FAMO-92 PO; +METO-486 PO
[2023-09-01 18:12] VITALS: BP 112/62; PULSE 77; RESP 16; TEMP 98.1; O2SAT 98
[2023-09-01 19:24] LABS: BASOPHILS # (AUTO) 0.1 K/uL (0.00-0.22); BASOPHILS % (AUTO) 0.7 % (0.0-2.0); EOSINOPHILS # (AUTO) 0.2 K/uL (0-0.4); EOSINOPHILS % (AUTO) 1.9 % (0.0-4.0); HEMATOCRIT 39.7 % (36-48); HEMOGLOBIN 12.5 g/dL (12.0-16.0); LYMPHOCYTES # (AUTO) 1.7 K/uL (2.5-16.5); LYMPHOCYTES % (AUTO) 19.1 % (20.5-51.1); MEAN CORPUSCULAR HEMOGLOBIN 27 pg (27-31); MEAN CORPUSCULAR HGB CONC 32 g/dL (33-37); MEAN CORPUSCULAR VOLUME 84.1 fL (80-94); MONOCYTES # (AUTO) 0.7 K/uL (0.8-1.0); MONOCYTES % (AUTO) 7.2 % (1.7-9.3); NEUTROPHILS # (AUTO) 6.5 K/uL (1.8-7.7); NEUTROPHILS % (AUTO) 71.1 % (42.2-75.2); PLATELET COUNT (AUTO) 276 K/uL (140-450); RED BLOOD CELL COUNT(AUTO) 4.72 MIL/uL (4.20-5.40); WHITE BLOOD COUNT (AUTO) 9.1 K/uL (4.8-10.8)
[2023-09-01] MEDS: MORPHINE SULFATE 2 MG/ML SYR IVP ONE (19:38)
[2023-09-01 19:43] LABS: CALCIUM 8.7 mg/dL (8.5-10.1); CARBON DIOXIDE 29.7 mmol/L (21-32); CREATININE 2.1 mg/dL (0.6-1.3); POTASSIUM 4.7 mmol/L (3.5-5.1)
[2023-09-01] MEDS ORDERED: HYDROcodone/APAP 5/325 MG 1 TAB TAB PO PRN (21:55)
[2023-09-01] MEDS ORDERED: MORPHINE SULFATE 2 MG/ML SYR IVP PRN (21:55)
[2023-09-01] MEDS ORDERED: MAGNESIUM OXIDE 400 MG TAB PO PRN (21:55)
[2023-09-01] MEDS ORDERED: ACETAMINOPHEN 325 MG TAB PO PRN (21:55)
[2023-09-01] MEDS ORDERED: KCL 20 MEQ IN 100 mL PREMIX 200 ML IV PRN (21:55)
[2023-09-01] MEDS ORDERED: MAG SULF 2000 MG/WATER PREMIX 50 ML IV PRN (21:55)
[2023-09-01] MEDS ORDERED: POTASSIUM CHLORIDE 10 MEQ TABER PO PRN (21:55)
[2023-09-01] MEDS ORDERED: HUM SUBQ (22:42)
[2023-09-01 23:45] VITALS: PULSE 82; RESP 18; O2SAT 98
[2023-09-02] VITALS: PULSE 93
[2023-09-02 04:00] VITALS: BP 105/45; PULSE 67; PULSE 72; RESP 18; TEMP 96.3; O2SAT 97
[2023-09-02 06:49] LABS: BASOPHILS # (AUTO) 0.1 K/uL (0.00-0.22); BASOPHILS % (AUTO) 0.7 % (0.0-2.0); EOSINOPHILS # (AUTO) 0.2 K/uL (0-0.4); HEMATOCRIT 38.2 % (36-48); HEMOGLOBIN 12.2 g/dL (12.0-16.0); LYMPHOCYTES # (AUTO) 2.2 K/uL (2.5-16.5); LYMPHOCYTES % (AUTO) 27.9 % (20.5-51.1); MEAN CORPUSCULAR HEMOGLOBIN 27 pg (27-31); MEAN CORPUSCULAR HGB CONC 32 g/dL (33-37); MEAN CORPUSCULAR VOLUME 83.6 fL (80-94); MONOCYTES # (AUTO) 0.6 K/uL (0.8-1.0); MONOCYTES % (AUTO) 7.8 % (1.7-9.3); NEUTROPHILS # (AUTO) 4.8 K/uL (1.8-7.7); NEUTROPHILS % (AUTO) 60.6 % (42.2-75.2); PLATELET COUNT (AUTO) 266 K/uL (140-450); RED BLOOD CELL COUNT(AUTO) 4.57 MIL/uL (4.20-5.40); RED CELL DISTRIBUTION WIDTH 16.8 % (11.6-13.7)
[2023-09-02 07:09] LABS: ALBUMIN 2.9 g/dL (3.4-5.0); ANION GAP 9.9 (8-16); CALCIUM 8.5 mg/dL (8.5-10.1); CARBON DIOXIDE 29.8 mmol/L (21-32); CREATININE 2.1 mg/dL (0.6-1.3); MAGNESIUM 2.1 mg/dL (1.8-2.4); POTASSIUM 4.7 mmol/L (3.5-5.1); TOTAL BILIRUBIN 0.4 mg/dL (0.0-1.0); TOTAL PROTEIN, SERUM 7.1 g/dL (6.4-8.2)
[2023-09-02 08:00] VITALS: BP 142/64; PULSE 73; PULSE 80; PULSE 85; RESP 18; TEMP 97; O2SAT 97
[2023-09-02] MEDS: ATORVASTATIN 20 MG TAB PO SCH (08:17)
[2023-09-02] MEDS: ASPIRIN 81 MG TAB.CHEW PO SCH (08:17)
[2023-09-02] MEDS ORDERED: DEXTROSE 50% 50 ML SYR IVP PRN (09:30)
[2023-09-02] MEDS ORDERED: HYDROcodone/APAP 5/325 MG 1 TAB TAB PO PRN (09:30)
[2023-09-02] MEDS ORDERED: METOCLOPRAMIDE 10 MG TAB PO PRN (09:30)
[2023-09-02] MEDS: BLOOD GLUCOSE MONITORING 1 DEV DEV FS SCH (11:42)
[2023-09-02] MEDS: INSULIN LISPRO SLIDING SCALE 100 UNITS/ML VIAL SUBQ PRN (11:43)
[2023-09-02 16:00] VITALS: BP 152/73; PULSE 79; RESP 18; TEMP 97.3; O2SAT 97
[2023-09-02] MEDS ORDERED: METOPROLOL 25 MG TAB PO SCH (21:00)
== END 2023-09-02 18:35 | disposition home or self-care (01) ==
LOC: MED 18:03 → MTU 21:58
PROVIDERS: ADMIT Hospitalist; ATTEND Hospitalist
DX: R07.89 Other chest pain (principal); I10 Essential (primary) hypertension; I73.9 Peripheral vascular disease, unspecified; E11.9 Type 2 diabetes mellitus without complications; R51.9 Headache, unspecified; K21.9 Gastro-esophageal reflux disease without esophagitis; E78.5 Hyperlipidemia, unspecified; E66.01 Morbid (severe) obesity due to excess calories; Z79.899 Other long term (current) drug therapy
CPT/HCPCS: 36415; 70450; 71045; 80048; 80053; 82948; 83735; 83880; 84484; 85025; 87081; 96372; 96374; 99285; C8929; G0378; J1644; J1815; J2270; 93005

== ENCOUNTER 2023-09-16 16:56 | Inpatient (IN) | payer OTHER ==
[~2023-09-16] VITALS: Ht 154.9 cm; Wt 117.0 kg
[~2023-09-16 16:56] MED LIST changes: -ASPI81CT33 PO; +HUM SUBQ; -MERO1VIA15 IV
[2023-09-16 17:11] VITALS: BP 100/46; PULSE 88; RESP 22; TEMP 98.1; O2SAT 98
[2023-09-16 18:14] LABS: APPEARANCE,URINE HAZY (CLEAR); BILIRUBIN,URINE NEGATIVE (NEGATIVE); BLOOD, URINE NEGATIVE (NEGATIVE); COLOR,URINE YELLOW (YELLOW); LEUKOCYTE ESTERASE ,URINE NEGATIVE (NEGATIVE); NITRITE, URINE NEGATIVE (NEGATIVE); PROTEIN,URINE TRACE (NEGATIVE); UGLUCOSE 3+ (NEGATIVE); UROBILINOGEN,URINE 0.2 EU/dL (0.2 - 1)
[2023-09-16 18:15] VITALS: O2SAT 98
[2023-09-16 18:15] LABS: RBC,URINE 0-5 /HPF (0-5)
[2023-09-16 18:16] LABS: BACTERIA,URINE 1+ /HPF (None Seen); MUCUS,URINE None Seen /LPF (None Seen); SQUAMOUS EPITHELIAL CELL,UR 0-3 (FEW) /LPF (0-3 (FEW)); WBC,URINE 0-5 /HPF (0-5)
[2023-09-16] MEDS ORDERED: DEXTROSE 50% 50 ML SYR IVP ONE (18:29)
[2023-09-16] MEDS: DEXTROSE 50% 50 ML SYR IVP ONE (18:33)
[2023-09-16] MEDS: PANTOPRAZOLE 40 MG INJ VIAL IVP ONE (18:34)
[2023-09-16] MEDS: ONDANSETRON 4 MG/2 ML VIAL IVP ONE (18:34)
[2023-09-16] MEDS: ALUMINUM HYD/MAG/SIMETHICONE 30 ML UDC PO ONE (18:41)
[2023-09-16] MEDS: MORPHINE SULFATE 4 MG/ML SYR IVP ONE (18:47)
[2023-09-16 18:50] LABS: BASOPHILS # (AUTO) 0.1 K/uL (0.00-0.22); BASOPHILS % (AUTO) 0.9 % (0.0-2.0); EOSINOPHILS # (AUTO) 0.2 K/uL (0-0.4); EOSINOPHILS % (AUTO) 2.3 % (0.0-4.0); HEMATOCRIT 40.3 % (36-48); HEMOGLOBIN 12.6 g/dL (12.0-16.0); LYMPHOCYTES # (AUTO) 2.9 K/uL (2.5-16.5); LYMPHOCYTES % (AUTO) 26.5 % (20.5-51.1); MEAN CORPUSCULAR HEMOGLOBIN 27 pg (27-31); MEAN CORPUSCULAR HGB CONC 31 g/dL (33-37); MEAN CORPUSCULAR VOLUME 84.8 fL (80-94); MONOCYTES # (AUTO) 0.8 K/uL (0.8-1.0); MONOCYTES % (AUTO) 7.5 % (1.7-9.3); NEUTROPHILS # (AUTO) 6.9 K/uL (1.8-7.7); NEUTROPHILS % (AUTO) 62.8 % (42.2-75.2); PLATELET COUNT (AUTO) 303 K/uL (140-450); RED BLOOD CELL COUNT(AUTO) 4.75 MIL/uL (4.20-5.40); RED CELL DISTRIBUTION WIDTH 17.2 % (11.6-13.7)
[2023-09-16 18:53] VITALS: PULSE 75; RESP 19; RESP 22; O2SAT 98
[2023-09-16] MEDS: ALBUTEROL 0.083% 2.5 MG/3 ML NEBU INH ONE (18:59)
[2023-09-16 19:00] LABS: ANION GAP 14.7 (8-16); CALCIUM 9.1 mg/dL (8.5-10.1); CARBON DIOXIDE 28.4 mmol/L (21-32); CREATININE 2.4 mg/dL (0.6-1.3); POTASSIUM 5.1 mmol/L (3.5-5.1)
[2023-09-16] MEDS: FUROSEMIDE 40 MG/4 ML VIAL IVP ONE (19:00)
[2023-09-16 19:06] LABS: ALBUMIN 3.1 g/dL (3.4-5.0); BILIRUBIN,DIRECT 0.1 mg/dL (0.0-0.3); TOTAL BILIRUBIN 0.3 mg/dL (0.0-1.0); TOTAL PROTEIN, SERUM 7.5 g/dL (6.4-8.2)
[2023-09-16 19:37] VITALS: O2SAT 98
[2023-09-16 22:01] VITALS: O2SAT 98
[2023-09-16 23:38] LABS: LACTIC ACID 0.7 mmol/L (0.4-2.0)
[2023-09-16] MEDS ORDERED: ACETAMINOPHEN 325 MG TAB PO PRN (23:50)
[2023-09-17] VITALS (9 sets, daily range): BP systolic 111–135; BP diastolic 65–72; PULSE 62–98; RESP 20–22; TEMP 97.1–98.1; O2SAT 93–100
[2023-09-17] MEDS: NACL 0.9% 250 ML IV SCH (00:12)
[2023-09-17 07:34] LABS: BASOPHILS % (AUTO) 0.5 % (0.0-2.0); EOSINOPHILS # (AUTO) 0.2 K/uL (0-0.4); HEMATOCRIT 39.7 % (36-48); HEMOGLOBIN 12.4 g/dL (12.0-16.0); LYMPHOCYTES # (AUTO) 2.1 K/uL (2.5-16.5); MEAN CORPUSCULAR HEMOGLOBIN 27 pg (27-31); MEAN CORPUSCULAR HGB CONC 31 g/dL (33-37); MEAN CORPUSCULAR VOLUME 86.9 fL (80-94); MONOCYTES # (AUTO) 0.7 K/uL (0.8-1.0); MONOCYTES % (AUTO) 7.7 % (1.7-9.3); NEUTROPHILS # (AUTO) 5.7 K/uL (1.8-7.7); NEUTROPHILS % (AUTO) 65.8 % (42.2-75.2); PLATELET COUNT (AUTO) 271 K/uL (140-450); RED BLOOD CELL COUNT(AUTO) 4.56 MIL/uL (4.20-5.40); RED CELL DISTRIBUTION WIDTH 18.1 % (11.6-13.7); WHITE BLOOD COUNT (AUTO) 8.7 K/uL (4.8-10.8)
[2023-09-17] MEDS: BLOOD GLUCOSE MONITORING 1 DEV DEV FS SCH ×2 (07:42→11:30)
[2023-09-17 07:57] LABS: ALBUMIN 2.9 g/dL (3.4-5.0); ANION GAP 9.1 (8-16); CALCIUM 8.4 mg/dL (8.5-10.1); CARBON DIOXIDE 32.7 mmol/L (21-32); CREATININE 2.9 mg/dL (0.6-1.3); MAGNESIUM 2.7 mg/dL (1.8-2.4); PHOSPHORUS 7.1 mg/dL (2.5-4.9); POTASSIUM 5.8 mmol/L (3.5-5.1); TOTAL BILIRUBIN 0.3 mg/dL (0.0-1.0)
[2023-09-17] MEDS ORDERED: DEXTROSE 50% 50 ML SYR IVP PRN ×2 (08:30)
[2023-09-17] MEDS: FUROSEMIDE 40 MG/4 ML VIAL IVP SCH (09:00)
[2023-09-17] MEDS ORDERED: ENOXAPARIN 30 MG/0.3 ML SYR SUBQ SCH (09:00)
[2023-09-17] MEDS: ATORVASTATIN 20 MG TAB PO SCH (09:00)
[2023-09-17] MEDS: SODIUM ZIRCONIUM CYCLOSILICATE 10 GM POWD.PACK PO SCH (10:15)
[2023-09-17] MEDS ORDERED: ALBUTEROL SULFATE/IPRATROPIU 3 ML SOL IH PRN (10:20)
[2023-09-17] MEDS ORDERED: ALBUTEROL 0.083% 2.5 MG/3 ML NEBU INH SCH (10:20)
[2023-09-17] MEDS: HYDROcodone/APAP 5/325 MG 1 TAB TAB PO PRN (17:21)
[2023-09-17 20:14] LABS: APPEARANCE,URINE CLEAR (CLEAR); BILIRUBIN,URINE NEGATIVE (NEGATIVE); BLOOD, URINE NEGATIVE (NEGATIVE); COLOR,URINE YELLOW (YELLOW); LEUKOCYTE ESTERASE ,URINE NEGATIVE (NEGATIVE); NITRITE, URINE NEGATIVE (NEGATIVE); PROTEIN,URINE NEGATIVE (NEGATIVE); UGLUCOSE 1+ (NEGATIVE); UROBILINOGEN,URINE 0.2 EU/dL (0.2 - 1)
[2023-09-17] MEDS ORDERED: HEPARIN PER PHARMACY MC PRN (20:25)
[2023-09-17 20:30] LABS: INR 0.95 (0.8-1.2)
[2023-09-17] MEDS: FUROSEMIDE 20 MG/2 ML VIAL IVP ONE (20:34)
[2023-09-17] MEDS ORDERED: METOPROLOL 25 MG TAB PO SCH (21:00)
[2023-09-17] MEDS ORDERED: SIMVASTATIN 20 MG TAB PO SCH (21:00)
[2023-09-17 21:22] LABS: PARTIAL THROMBOPLASTIN TIME 28.3 secs (22-35.6)
[2023-09-18] VITALS (14 sets, daily range): BP systolic 106–129; BP diastolic 55–63; PULSE 64–95; RESP 18–19; TEMP 97.2–98.4; O2SAT 96–99
[2023-09-18] MEDS: hePARIN / DEXT 5% PREMIX 250 ML IV PRN (00:32)
[2023-09-18] MEDS: INSULIN LISPRO SLIDING SCALE 100 UNITS/ML VIAL SUBQ PRN (06:44)
[2023-09-18 08:27] LABS: BASOPHILS # (AUTO) 0.1 K/uL (0.00-0.22); BASOPHILS % (AUTO) 0.7 % (0.0-2.0); EOSINOPHILS # (AUTO) 0.1 K/uL (0-0.4); EOSINOPHILS % (AUTO) 1.6 % (0.0-4.0); HEMATOCRIT 36.7 % (36-48); HEMOGLOBIN 11.4 g/dL (12.0-16.0); LYMPHOCYTES # (AUTO) 1.4 K/uL (2.5-16.5); LYMPHOCYTES % (AUTO) 14.9 % (20.5-51.1); MEAN CORPUSCULAR HEMOGLOBIN 27 pg (27-31); MEAN CORPUSCULAR HGB CONC 31 g/dL (33-37); MEAN CORPUSCULAR VOLUME 87.7 fL (80-94); MONOCYTES # (AUTO) 0.5 K/uL (0.8-1.0); MONOCYTES % (AUTO) 5.8 % (1.7-9.3); PLATELET COUNT (AUTO) 239 K/uL (140-450); RED BLOOD CELL COUNT(AUTO) 4.18 MIL/uL (4.20-5.40); RED CELL DISTRIBUTION WIDTH 17.7 % (11.6-13.7); WHITE BLOOD COUNT (AUTO) 9.1 K/uL (4.8-10.8)
[2023-09-18 08:42] LABS: ANION GAP 9.3 (8-16); CALCIUM 8.2 mg/dL (8.5-10.1); CARBON DIOXIDE 32.6 mmol/L (21-32); CREATININE 3.4 mg/dL (0.6-1.3); POTASSIUM 4.9 mmol/L (3.5-5.1)
[2023-09-18 08:47] LABS: MAGNESIUM 2.8 mg/dL (1.8-2.4); PHOSPHORUS 6.4 mg/dL (2.5-4.9)
[2023-09-19] VITALS (12 sets, daily range): BP systolic 109–137; BP diastolic 48–87; PULSE 68–107; RESP 16–20; TEMP 97.1–98; O2SAT 94–98
[2023-09-19 07:39] LABS: BASOPHILS # (AUTO) 0.1 K/uL (0.00-0.22); BASOPHILS % (AUTO) 1.1 % (0.0-2.0); EOSINOPHILS # (AUTO) 0.2 K/uL (0-0.4); EOSINOPHILS % (AUTO) 2.4 % (0.0-4.0); HEMATOCRIT 37.7 % (36-48); LYMPHOCYTES # (AUTO) 1.4 K/uL (2.5-16.5); LYMPHOCYTES % (AUTO) 16.9 % (20.5-51.1); MEAN CORPUSCULAR HEMOGLOBIN 27 pg (27-31); MEAN CORPUSCULAR HGB CONC 32 g/dL (33-37); MEAN CORPUSCULAR VOLUME 85.3 fL (80-94); MONOCYTES # (AUTO) 0.5 K/uL (0.8-1.0); MONOCYTES % (AUTO) 6.2 % (1.7-9.3); NEUTROPHILS # (AUTO) 6.1 K/uL (1.8-7.7); NEUTROPHILS % (AUTO) 73.4 % (42.2-75.2); PLATELET COUNT (AUTO) 232 K/uL (140-450); RED BLOOD CELL COUNT(AUTO) 4.42 MIL/uL (4.20-5.40); RED CELL DISTRIBUTION WIDTH 17.2 % (11.6-13.7); WHITE BLOOD COUNT (AUTO) 8.3 K/uL (4.8-10.8)
[2023-09-19 07:53] LABS: ANION GAP 9.2 (8-16); CALCIUM 8.3 mg/dL (8.5-10.1); CARBON DIOXIDE 32.2 mmol/L (21-32); CREATININE 2.8 mg/dL (0.6-1.3); POTASSIUM 4.4 mmol/L (3.5-5.1)
[2023-09-19 07:56] LABS: MAGNESIUM 2.6 mg/dL (1.8-2.4); PHOSPHORUS 3.9 mg/dL (2.5-4.9)
[2023-09-19] MEDS: MORPHINE SULFATE 2 MG/ML SYR IVP PRN (16:08)
[2023-09-20] VITALS (13 sets, daily range): BP systolic 113–150; BP diastolic 53–77; PULSE 68–101; RESP 16–20; TEMP 96.8–97.9; O2SAT 93–99
[2023-09-20 06:46] LABS: BASOPHILS # (AUTO) 0.1 K/uL (0.00-0.22); BASOPHILS % (AUTO) 1.3 % (0.0-2.0); EOSINOPHILS # (AUTO) 0.2 K/uL (0-0.4); EOSINOPHILS % (AUTO) 2.8 % (0.0-4.0); HEMATOCRIT 38.9 % (36-48); HEMOGLOBIN 12.3 g/dL (12.0-16.0); LYMPHOCYTES # (AUTO) 1.5 K/uL (2.5-16.5); LYMPHOCYTES % (AUTO) 18.3 % (20.5-51.1); MEAN CORPUSCULAR HEMOGLOBIN 27 pg (27-31); MEAN CORPUSCULAR HGB CONC 32 g/dL (33-37); MEAN CORPUSCULAR VOLUME 85.4 fL (80-94); MONOCYTES # (AUTO) 0.6 K/uL (0.8-1.0); MONOCYTES % (AUTO) 7.4 % (1.7-9.3); NEUTROPHILS # (AUTO) 5.9 K/uL (1.8-7.7); NEUTROPHILS % (AUTO) 70.2 % (42.2-75.2); PLATELET COUNT (AUTO) 247 K/uL (140-450); RED BLOOD CELL COUNT(AUTO) 4.56 MIL/uL (4.20-5.40); RED CELL DISTRIBUTION WIDTH 16.5 % (11.6-13.7); WHITE BLOOD COUNT (AUTO) 8.5 K/uL (4.8-10.8)
[2023-09-20 07:43] LABS: ANION GAP 11.8 (8-16); CARBON DIOXIDE 32.6 mmol/L (21-32); CREATININE 2.1 mg/dL (0.6-1.3); POTASSIUM 4.4 mmol/L (3.5-5.1)
[2023-09-20 07:48] LABS: MAGNESIUM 2.4 mg/dL (1.8-2.4); PHOSPHORUS 2.6 mg/dL (2.5-4.9)
[2023-09-20] MEDS: APIXABAN 2.5 MG TAB PO SCH (20:42)
[2023-09-21] VITALS (10 sets, daily range): BP systolic 117–147; BP diastolic 56–79; PULSE 74–80; RESP 16–20; TEMP 96.9–97.7; O2SAT 97–99
[2023-09-21 05:43] LABS: BASOPHILS # (AUTO) 0.2 K/uL (0.00-0.22); BASOPHILS % (AUTO) 2.6 % (0.0-2.0); EOSINOPHILS # (AUTO) 0.2 K/uL (0-0.4); EOSINOPHILS % (AUTO) 2.3 % (0.0-4.0); HEMATOCRIT 38.8 % (36-48); HEMOGLOBIN 12.2 g/dL (12.0-16.0); LYMPHOCYTES # (AUTO) 1.7 K/uL (2.5-16.5); LYMPHOCYTES % (AUTO) 19.8 % (20.5-51.1); MEAN CORPUSCULAR HEMOGLOBIN 27 pg (27-31); MEAN CORPUSCULAR HGB CONC 31 g/dL (33-37); MEAN CORPUSCULAR VOLUME 85.4 fL (80-94); MONOCYTES # (AUTO) 0.8 K/uL (0.8-1.0); MONOCYTES % (AUTO) 9.1 % (1.7-9.3); NEUTROPHILS # (AUTO) 5.7 K/uL (1.8-7.7); NEUTROPHILS % (AUTO) 66.2 % (42.2-75.2); PLATELET COUNT (AUTO) 245 K/uL (140-450); RED BLOOD CELL COUNT(AUTO) 4.54 MIL/uL (4.20-5.40); RED CELL DISTRIBUTION WIDTH 16.2 % (11.6-13.7); WHITE BLOOD COUNT (AUTO) 8.6 K/uL (4.8-10.8)
[2023-09-21 06:02] LABS: ANION GAP 7.9 (8-16); CALCIUM 9.1 mg/dL (8.5-10.1); CARBON DIOXIDE 34.5 mmol/L (21-32); CREATININE 1.8 mg/dL (0.6-1.3); POTASSIUM 4.4 mmol/L (3.5-5.1)
[2023-09-21 06:15] LABS: MAGNESIUM 2.2 mg/dL (1.8-2.4)
[2023-09-21] MEDS: FUROSEMIDE 20 MG/2 ML VIAL IVP SCH (09:31)
[2023-09-22] VITALS (8 sets, daily range): BP systolic 95–156; BP diastolic 55–78; PULSE 74–116; RESP 18–19; TEMP 96.9–97.9; O2SAT 96–100
[2023-09-22 05:32] LABS: BASOPHILS % (AUTO) 0.5 % (0.0-2.0); EOSINOPHILS # (AUTO) 0.3 K/uL (0-0.4); EOSINOPHILS % (AUTO) 2.4 % (0.0-4.0); HEMATOCRIT 41.9 % (36-48); HEMOGLOBIN 12.9 g/dL (12.0-16.0); LYMPHOCYTES % (AUTO) 18.9 % (20.5-51.1); MEAN CORPUSCULAR HEMOGLOBIN 26 pg (27-31); MEAN CORPUSCULAR HGB CONC 31 g/dL (33-37); MEAN CORPUSCULAR VOLUME 85.6 fL (80-94); MONOCYTES # (AUTO) 1.1 K/uL (0.8-1.0); MONOCYTES % (AUTO) 10.1 % (1.7-9.3); NEUTROPHILS # (AUTO) 7.2 K/uL (1.8-7.7); NEUTROPHILS % (AUTO) 68.1 % (42.2-75.2); PLATELET COUNT (AUTO) 241 K/uL (140-450); RED CELL DISTRIBUTION WIDTH 16.9 % (11.6-13.7); WHITE BLOOD COUNT (AUTO) 10.6 K/uL (4.8-10.8)
[2023-09-22 05:41] LABS: PHOSPHORUS 3.1 mg/dL (2.5-4.9)
[2023-09-22 05:42] LABS: ANION GAP 13.2 (8-16); CALCIUM 8.9 mg/dL (8.5-10.1); CREATININE 1.7 mg/dL (0.6-1.3); POTASSIUM 4.2 mmol/L (3.5-5.1)
[2023-09-22] MEDS ORDERED: LACTULOSE 20 GM/30 ML UDC PO PRN (09:45)
[2023-09-23] VITALS (10 sets, daily range): BP systolic 100–162; BP diastolic 63–79; PULSE 79–99; RESP 18–19; TEMP 96.5–99.7; O2SAT 94–99
[2023-09-23 05:34] LABS: BASOPHILS # (AUTO) 0.1 K/uL (0.00-0.22); BASOPHILS % (AUTO) 0.7 % (0.0-2.0); EOSINOPHILS # (AUTO) 0.2 K/uL (0-0.4); EOSINOPHILS % (AUTO) 2.5 % (0.0-4.0); HEMOGLOBIN 13.4 g/dL (12.0-16.0); LYMPHOCYTES # (AUTO) 1.8 K/uL (2.5-16.5); MEAN CORPUSCULAR HEMOGLOBIN 27 pg (27-31); MEAN CORPUSCULAR HGB CONC 32 g/dL (33-37); MEAN CORPUSCULAR VOLUME 84.1 fL (80-94); MONOCYTES # (AUTO) 0.8 K/uL (0.8-1.0); MONOCYTES % (AUTO) 8.4 % (1.7-9.3); NEUTROPHILS # (AUTO) 6.3 K/uL (1.8-7.7); NEUTROPHILS % (AUTO) 68.4 % (42.2-75.2); PLATELET COUNT (AUTO) 221 K/uL (140-450); RED BLOOD CELL COUNT(AUTO) 4.99 MIL/uL (4.20-5.40); RED CELL DISTRIBUTION WIDTH 16.3 % (11.6-13.7); WHITE BLOOD COUNT (AUTO) 9.1 K/uL (4.8-10.8)
[2023-09-23 05:45] LABS: ANION GAP 10.7 (8-16); CALCIUM 9.4 mg/dL (8.5-10.1); CARBON DIOXIDE 33.3 mmol/L (21-32); CREATININE 1.9 mg/dL (0.6-1.3)
[2023-09-24] VITALS: BP 144/78; PULSE 79; PULSE 86; RESP 19; TEMP 99.3; O2SAT 94
[2023-09-24 04:00] VITALS: BP 156/79; PULSE 87; PULSE 94; RESP 18; TEMP 97.5; O2SAT 96
[2023-09-24 08:00] VITALS: BP 155/88; PULSE 59; PULSE 88; PULSE 89; RESP 17; RESP 18; TEMP 97.4; O2SAT 96; O2SAT 97
[2023-09-24 08:19] VITALS: O2SAT 95
[2023-09-24] MEDS: levoFLOXacin 250 MG TAB PO SCH (09:27)
[2023-09-24] MEDS ORDERED: FUROSEMIDE 40 MG TAB PO ONE (10:45)
[2023-09-24] MEDS ORDERED: APIX5TAB PO (11:27)
[2023-09-24] MEDS ORDERED: POTA10TA70 PO (11:27)
[2023-09-24] MEDS ORDERED: GLIP5TER PO (11:27)
[2023-09-24] MEDS ORDERED: LEVO-481 PO (11:27)
[2023-09-24] MEDS ORDERED: FURO-570 PO (11:27)
[2023-09-24 12:00] VITALS: BP 157/76; PULSE 85; PULSE 87; RESP 18; TEMP 98.1; O2SAT 98
[2023-09-24] MEDS: FUROSEMIDE 40 MG TAB PO SCH (15:09)
[2023-09-24] MEDS: METOPROLOL SUCCINATE 50 MG TABER PO ONE (17:38)
[2023-09-25] MEDS ORDERED: METOPROLOL SUCCINATE 50 MG TABER PO SCH (09:00)
[2023-09-27] MEDS ORDERED: APIXABAN 2.5 MG TAB PO SCH (21:00)
== END 2023-09-24 18:33 | disposition home or self-care (01) | DRG 175 ==
LOC: MED 16:56 → MTU 23:51
PROVIDERS: ADMIT Student in an Organized Health Care Education/Training Program; ATTEND Student in an Organized Health Care Education/Training Program
DX: I26.99 Other pulmonary embolism without acute cor pulmonale (principal); I50.33 Acute on chronic diastolic (congestive) heart failure; J96.01 Acute respiratory failure with hypoxia; I13.0 Hypertensive heart and chronic kidney disease with heart failure and stage 1 through stage 4 chronic kidney disease, or unspecified chronic kidney disease; E44.1 Mild protein-calorie malnutrition; G93.49 Other encephalopathy; Z68.42 Body mass index [BMI] 45.0-49.9, adult; E11.22 Type 2 diabetes mellitus with diabetic chronic kidney disease; E78.5 Hyperlipidemia, unspecified; E66.01 Morbid (severe) obesity due to excess calories; E87.5 Hyperkalemia; N28.1 Cyst of kidney, acquired; N18.31 Chronic kidney disease, stage 3a; E11.51 Type 2 diabetes mellitus with diabetic peripheral angiopathy without gangrene; K21.9 Gastro-esophageal reflux disease without esophagitis; Z98.61 Coronary angioplasty status; Z79.899 Other long term (current) drug therapy; Z79.84 Long term (current) use of oral hypoglycemic drugs; Z79.4 Long term (current) use of insulin
CPT/HCPCS: 36415; 70450; 71045; 76770; 78580; 80048; 80053; 80076; 81001; 81003; 82570; 82948; 83605; 83690; 83735; 83880; 84100; 84300; 84484; 85025; 85379; 85610; 85730; 87040; 87081; 87086; 87186; 93970; 94640; 96374; 96375; 97110; 97112; 97116; 97163-GP; 97530; 99285; A9540; J1644; J1650; J1815; J1940; J1956; J2270; J2405; J2470; J7613; Q0092